=== PATIENT | female | born 1965 | race Caucasian/White ===

== ENCOUNTER 2022-02-05 20:05 | Emergency (ER) | payer MEDICARE, SELFPAY ==
[2022-02-05 20:08] VITALS: BP 104/67; PULSE 88; RESP 18; TEMP 37.4; O2SAT 97; BMI 26.9
--- NOTE | 2022-02-05 21:10 | EDS_ITS ---
HPI HPI - URI History of Present Illness Chief Complaint: Cough Narrative Narrative: 56-year-old female presenting with fever, chills, body aches, nausea/vomiting. She states she current lives at homeless skilled nursing. She states she was around her daughter and her children the other day who all tested positive for influenza A. She does not have any chest pain. She does complain of body aches and history of neuropathy. He states that her neuropathic pain medicine is not helping her right now. ROS ROS ED Constitutional Constitutional ED: Reports chills and fever(s) Eyes Eyes: Denies change in vision or diplopia ENT ENT ED: Denies rhinorrhea or sore throat Cardiovascular Cardiovascular: Denies chest pain or palpitations Respiratory/Chest Respiratory/Chest: Reports cough and dyspnea Gastrointestinal Gastrointestinal: Reports nausea and vomiting; Denies abdominal pain Genitourinary Genitourinary ED: Denies dysuria or hematuria Musculoskeletal Musculoskeletal: Reports myalgias Integumentary Denies abscess or Abrasions Neurologic Neurologic: Reports headache(s); Denies paresthesias or weakness Psychiatric Psychiatric: Denies anxiety or depression [facility] Medical History Back pain Carpal tunnel syndrome on both sides Cholecystectomy planned Pain management Home Medications Vitamin D3 02/05/22 [History Last Taken Unknown] albuterol sulfate 90 mcg/actuation aerosol inhaler 2 puff inhalation Q4H PRN Wheezing 02/05/22 [History Last Taken Unknown] amitriptyline 50 mg tablet 50 mg PO QHS 02/05/22 [History Last Taken Unknown] budesonide-formoterol HFA 80 mcg-4.5 mcg/actuation aerosol inhaler (Symbicort) 2 puff inhalation BID 02/05/22 [History Last Taken Unknown] bupropion HCl 75 mg tablet 37.5 mg PO QHS 02/05/22 [History Last Taken Unknown] buspirone 5 mg tablet 5 mg PO TID 02/05/22 [History Last Taken Unknown] cyclobenzaprine 10 mg tablet 10 mg PO TID PRN Spasms 02/05/22 [History Last Take n Unknown] duloxetine 60 mg capsule,delayed release 60 mg PO DAILY 02/05/22 [History Last Taken Unknown] fluticasone propionate 50 mcg/actuation nasal spray,suspension (Flonase Allergy Relief) 2 spray intranasal DAILY 02/05/22 [History Last Taken Unknown] insulin glargine 100 unit/mL (3 mL) subcutaneous pen (Lantus Solostar U-100 Insulin) 75 unit subcut QHS 02/05/22 [History Last Taken Unknown] meloxicam 15 mg tablet 15 mg PO DAILY 02/05/22 [History Last Taken Unknown] metformin 1,000 mg tablet 1,000 mg PO BID 02/05/22 [History Last Taken Unknown] montelukast 10 mg tablet (Singulair) 10 mg PO DAILY 02/05/22 [History Last Taken Unknown] oxycodone-acetaminophen 7.5 mg-325 mg tablet (Percocet) 1 tab PO Q6H PRN Pain 02/05/22 [History Last Taken Unknown] pioglitazone 15 mg tablet 15 mg PO DAILY 02/05/22 [History Last Taken Unknown] pravastatin 40 mg tablet 40 mg PO QHS 02/05/22 [History Last Taken Unknown] pregabalin 100 mg capsule 100 mg PO DAILY 02/05/22 [History Last Taken Unknown] topiramate 50 mg tablet 50 mg PO QHS 02/05/22 [History Last Taken Unknown] Allergy/AdvReac Type Severity Reaction Status Date / Time acetaminophen [From Vicodin] Allergy Other Verified 02/05/22 20:07 codeine Allergy Other Verified 02/05/22 20:07 hydrocodone [From Vicodin] Allergy Other Verified 02/05/22 20:07 oxycodone AdvReac Itching Verified 02/05/22 20:07 Surgical History History of hysterectomy Social History Smoking Status: Current every day smoker tobacco type: cigarettes EXAM Physical Exam Const Vital Signs: 02/05/22 20:08 02/05/22 20:14 Temperature 99.4 F H Temperature Source Temporal Pulse Rate 88 Respiratory Rate 18 Respiratory Effort Normal Non-Labored Respiratory Pattern Normal Blood Pressure 104/67 Blood Pressure Mean 79 Pulse Ox 97 Oxygen Delivery Method Room Air Positive well nourished General Appearance ED: NAD; Negative for pallor HEENT Reports moist mucous membranes normocephalic and atraumatic Eyes PERRL and EOMs intact bilaterally Resp normal respiratory effort and clear to auscultation bilaterally Auscultation: Negative for rales or rhonchi Cardio Rate: regular rate Rhythm: regular rhythm GI non-tender and non-distended Extremity normal to inspection Neuro oriented x3 and CN's II-XII intact bilaterally Sensorium / Orientation: alert Psych mental status grossly normal Skin General Skin Exam: Negative for jaundice or pallor MDM MDM MDM Narrative Medical decision making narrative: Appearing 56-year-old female with normal vital signs. She reports exposure to influenza and thinks that is what she has. She does not want to be tested. She does complain of body aches and nausea and vomiting. She is given IM Toradol and a dose of Zofran orally. Her lungs are clear to auscultation. I do not believe she needs a chest x-ray. On reevaluation patient feeling improved. She is given a p.o. challenge and able to tolerate fluids. She will be given a prescription for Zofran for home. She is to alternate Tylenol and ibuprofen. Patient stable for discharge at this time. Impression: 1. Viral syndrome 2. Nausea/vomiting Lab Data Attestation: I reviewed the patient's lab results. Discharge Plan Triage Chief Complaint: Cough Other Complaint: Fever Nausea/Vomiting ED Provider: Raphael Patel Dx/Rx/DC Orders Prescriptions: No Action cyclobenzaprine 10 mg Tablet 10 mg PO TID PRN (Reason: Spasms) pioglitazone 15 mg Tablet 15 mg PO DAILY buspirone 5 mg Tablet 5 mg PO TID pravastatin 40 mg Tablet 40 mg PO QHS meloxicam 15 mg Tablet 15 mg PO DAILY amitriptyline 50 mg Tablet 50 mg PO QHS metformin 1,000 mg Tablet 1,000 mg PO BID bupropion HCl [Wellbutrin] 75 mg Tablet 37.5 mg PO QHS montelukast [Singulair] 10 mg Tablet 10 mg PO DAILY oxycodone-acetaminophen [Percocet] 7.5-325 mg Tablet 1 tab PO Q6H PRN (Reason: Pain) albuterol sulfate 90 mcg/actuation Hfa Aerosol Inhaler 2 puff INHALATION Q4H PRN (Reason: Wheezing) fluticasone propionate [Flonase Allergy Relief] 50 mcg/actuation [place],Suspension 2 spray INTRANASAL DAILY Rx Instructions: administer into each nostril topiramate 50 mg Tablet 50 mg PO QHS duloxetine 60 mg Capsule,Delayed Release(Dr/Ec) 60 mg PO DAILY pregabalin 100 mg Capsule 100 mg PO DAILY budesonide-formoterol [Symbicort] 80-4.5 mcg/actuation Hfa Aerosol Inhaler 2 puff INHALATION BID insulin glargine [Lantus Solostar U-100 Insulin] 100 unit/mL (3 mL) Insulin Pen 75 unit SUBCUT QHS Vitamin D3 Primary Care Provider: Care Physician,No Primary Referrals: Care Physician,No Primary [Primary Care Provider] -
[2022-02-05] MEDS: Ketorolac 15 MG/ML Vial IM (21:29)
[2022-02-05] MEDS: Ondansetron ODT 4 MG Tablet PO (21:30)
[2022-02-05 22:46] VITALS: O2SAT 97
== END 2022-02-05 22:56 | disposition home or self-care (01) ==
PROVIDERS: Emergency Provider Student in an Organized Health Care Education/Training Program; Visit Provider Student in an Organized Health Care Education/Training Program
DX: B34.9 Viral infection, unspecified (principal); Z79.4 Long term (current) use of insulin; R11.2 Nausea with vomiting, unspecified; F17.210 Nicotine dependence, cigarettes, uncomplicated; Z79.899 Other long term (current) drug therapy
CPT/HCPCS: 96372; 96374; 99285; J2405

== ENCOUNTER 2022-02-16 20:22 | Emergency (ER) | payer MEDICARE, SELFPAY ==
[2022-02-16 20:24] VITALS: BP 109/80; PULSE 110; RESP 16; TEMP 37.7; O2SAT 95; BMI 27.3
--- NOTE | 2022-02-16 20:40 | RAD_ITS ---
INDICATION: cough, fever EXAMINATION/TECHNIQUE: X-RAY - XR Chest 2 Views COMPARISON: None. FINDINGS: LINES/DEVICES: None. LUNGS: Right midlung consolidation. The left lung appears clear. MEDIASTINUM AND CARDIOVASCULAR STRUCTURES: Cardiac silhouette not enlarged. Central airways and mediastinal contour are unremarkable. RAD/Chest PA and Lateral IMPRESSION: Right midlung consolidation. Electronically Signed: Alfonzo Heard MD at 20:54 EST ,
--- NOTE | 2022-02-16 21:16 | EX.ED.DYSGE1 ---
HPI History of Present Illness Chief Complaint: Fever Detail of Chief Complaint: Fever, cough, sore throat Informant: patient Narrative Narrative: Patient presents the emergency department complaint of feeling sick for about 2 weeks. Patient states that her grandkids were ill and other family members were ill that she was helping take care of. Patient complains of cough with dark sputum at times. She complains of sore throat and right ear pain. She complains of some exertional dyspnea. She denies chest pain. She denies recent travel or surgery. Patient has had the COVID-vaccine but not any other boosters. [facility] Medical History Back pain Carpal tunnel syndrome on both sides Cholecystectomy planned Pain management Home Medications Vitamin D3 02/05/22 [History Last Taken Unknown] acetaminophen 650 mg tablet,extended release (Tylenol 8 Hour) 650 mg PO Q8H PRN fever or pain #14 tabs 02/05/22 [Rx Last Taken Unknown] albuterol sulfate 90 mcg/actuation aerosol inhaler 2 puff inhalation Q4H PRN Wheezing 02/05/22 [History Last Taken Unknown] amitriptyline 50 mg tablet 50 mg PO QHS 02/05/22 [History Last Taken Unknown] budesonide-formoterol HFA 80 mcg-4.5 mcg/actuation aerosol inhaler (Symbicort) 2 puff inhalation BID 02/05/22 [History Last Taken Unknown] bupropion HCl 75 mg tablet 37.5 mg PO QHS 02/05/22 [History Last Taken Unknown] buspirone 5 mg tablet 5 mg PO TID 02/05/22 [History Last Taken Unknown] cyclobenzaprine 10 mg tablet 10 mg PO TID PRN Spasms 02/05/22 [History Last Taken Unknown] duloxetine 60 mg capsule,delayed release 60 mg PO DAILY 02/05/22 [History Last Taken Unknown] fluticasone propionate 50 mcg/actuation nasal spray,suspension (Flonase Allergy Relief) 2 spray intranasal DAILY 02/05/22 [History Last Taken Unknown] ibuprofen 600 mg tablet 600 mg PO Q6H PRN PRN fever or pain #20 tabs 02/05/22 [Rx Last Taken Unknown] insulin glargine 100 unit/mL (3 mL) subcutaneous pen (Lantus Solostar U-100 Insulin) 75 unit subcut QHS 02/05/22 [History Last Taken Unknown] meloxicam 15 mg tablet 15 mg PO DAILY 02/05/22 [History Last Taken Unknown] metformin 1,000 mg tablet 1,000 mg PO BID 02/05/22 [History Last Taken Unknown] montelukast 10 mg tablet (Singulair) 10 mg PO DAILY 02/05/22 [History Last Taken Unknown] ondansetron 4 mg disintegrating tablet 4 mg PO Q8H PRN nausea and vomiting #14 tabs 02/05/22 [Rx Last Taken Unknown] oxycodone-acetaminophen 7.5 mg-325 mg tablet (Percocet) 1 tab PO Q6H PRN Pain 02/05/22 [History Last Taken Unknown] pioglitazone 15 mg tablet 15 mg PO DAILY 02/05/22 [History Last Taken Unknown] pravastatin 40 mg tablet 40 mg PO QHS 02/05/22 [History Last Taken Unknown] pregabalin 100 mg capsule 100 mg PO DAILY 02/05/22 [History Last Taken Unknown] topiramate 50 mg tablet 50 mg PO QHS 02/05/22 [History Last Taken Unknown] benzonatate 200 mg capsule 200 mg PO TID PRN cough #20 caps 02/16/22 [Rx Last Taken Unknown] levofloxacin 750 mg tablet 750 mg PO DAILY #7 tabs 02/16/22 [Rx Last Taken Unknown] Allergy/AdvReac Type Severity Reaction Status Date / Time codeine Allergy Other Verified 02/16/22 20:27 hydrocodone [From Vicodin] Allergy Other Verified 02/16/22 20:27 oxycodone AdvReac Itching Verified 02/16/22 20:27 Surgical History History of hysterectomy Social History Smoking Status: Current every day smoker tobacco type: cigarettes ROS ROS ED Review of Systems ROS Unobtainable: other Constitutional Constitutional ED: Reports fever(s) and lethargy; Denies chills, sweats or weight loss Eyes Eyes: Denies blurry vision, change in vision or diplopia ENT ENT ED: Reports sore throat; Denies rhinorrhea Cardiovascular Cardiovascular: Denies chest pain, orthopnea or racing heartbeat Respiratory/Chest Respiratory/Chest: Reports cough, dyspnea and dyspnea on exertion; Denies orthopnea or sputum Gastrointestinal Gastrointestinal: Denies abdominal pain, diarrhea, nausea or vomiting Genitourinary Genitourinary ED: Denies dysuria, hematuria or urinary frequency Musculoskeletal Musculoskeletal: Denies arthralgias, back pain, myalgias or neck pain Integumentary Denies abscess, Abrasions or rash Neurologic Neurologic: Denies headache(s) or weakness Psychiatric Psychiatric: Denies anxiety, depression or suicidal thoughts Endocrine Endocrinology: Denies polydipsia, polyphagia or polyuria Hematologic/Lymphatic Hematologic/Lymphatic: Denies easy bleeding, easy bruising or lymphadenopathy Allergic/Immunologic Allergic/Immunologic ED: Denies mouth swelling, tongue swelling or urticaria EXAM Physical Exam Const Vital Signs: 02/16/22 20:24 02/16/22 22:02 02/16/22 22:02 Temperature 99.9 F H 99.2 F H Temperature Source Temporal Oral Pulse Rate 110 H 95 95 Respiratory Rate 16 16 16 Respiratory Effort Respiratory Pattern Blood Pressure 109/80 95/64 95/64 Blood Pressure Mean 89 74 74 Pulse Ox 95 98 98 Oxygen Delivery Method Room Air Room Air Room Air 02/16/22 22:02 02/16/22 22:02 02/16/22 22:05 Temperature Temperature Source Pulse Rate Respiratory Rate 16 Respiratory Effort Normal Non-Labored Respiratory Pattern Normal Blood Pressure Blood Pressure Mean Pulse Ox 98 Oxygen Delivery Method Room Air Room Air Positive well nourished and well developed General Appearance ED: well developed and NAD HEENT Reports TM's clear and moist mucous membranes normocephalic and atraumatic; Negative for trauma or tenderness Tympanic Membrane ED: Yes TM's clear Eyes PERRL and EOMs intact bilaterally General Eye ED: Negative for pale conjunctiva or scleral icterus Neck no lymphadenopathy, supple and no JVD General: Negative for tenderness Chest Wall inspection of chest normal and palpation of chest normal Chest: Negative for tenderness Resp normal respiratory effort and clear to auscultation bilaterally Effort and Inspection: Negative for respiratory distress or pain with movement Auscultation: Negative for rhonchi, wheezes or diminished lung sounds Cardio regular rate, regular rhythm, S1 normal heart sound, S2 normal heart sound and no murmurs Peripheral Pulses: pulses 2+ throughout GI normal to inspection, nondistended, normoactive bowel sounds, soft to palpation, non-tender, non-distended and no masses Back/Spine no CVA tenderness and no thoracic nor lumbar tenderness Extremity normal to inspection General Extremety ED: Negative for edema General Extremity: Negative for edema Neuro oriented x3, CN's II-XII intact bilaterally, no sensory deficits noted and gait normal Sensorium / Orientation: awake, alert, oriented to person, oriented to place and oriented to time Motor Exam: strength 5/5 throughout and strength abnormal Psych mental status grossly normal Skin no rashes or lesions noted and no wounds MDM MDM MDM Narrative Medical decision making narrative: IV line established on arrival. Patient had a CBC with differential that showed an elevated white count of 19.6. Chemistries were unremarkable. Lactate was normal at 1.4. Chest x-ray obtained showed a right lower lobe infiltrate. Patient was started on IV Levaquin 750 mg IV. While in the department and her blood pressure dropped from 109/80-90 5/64 she was ordered a liter normal saline fluid bolus. Care of patient turned over to evening physician awaiting fluid bolus and repeat evaluation. Clinically she looks well. I feel she can be treated as an outpatient as she is not tachypneic or hypoxic. If her hypotension persist she may require admission. Lab Data Attestation: I reviewed the patient's lab results. Labs: Laboratory Results - last 24 hr 02/16/22 02/16/22 02/16/22 21:05 21:05 21:53 WBC Cancelled Corrected WBC Cancelled RBC Cancelled Hgb Cancelled Hct Cancelled MCV Cancelled MCH Cancelled MCHC Cancelled RDW Std Deviation Cancelled RDW Coeff of Elise Cancelled Plt Count Cancelled MPV Cancelled Immature Gran % (Auto) Cancelled Neut % (Auto) Cancelled Lymph % (Auto) Cancelled [place] % (Auto) Cancelled Eos % (Auto) Cancelled Baso % (Auto) Cancelled Absolute Neuts (auto) Cancelled Absolute Lymphs (auto) Cancelled Total Counted Cancelled Neutrophils % (Manual) Cancelled Band Neutrophils % Cancelled Lymphocytes % (Manual) Cancelled Monocytes % (Manual) Cancelled Eosinophils % (Manual) Cancelled Basophils % (Manual) Cancelled Metamyelocytes % Cancelled Myelocytes % Cancelled Promyelocytes % Cancelled Blast Cells % Cancelled Plasma Cell % (Manual) Cancelled Other Cells % Cancelled Nucleated RBC % Cancelled Nucleated RBCs/100 WBC Cancelled Differential Comment Cancelled Diff Path Review Cancelled Hypersegmented Neuts Cancelled Atypical Lymphocytes Cancelled Reactive Lymphocytes Cancelled Smudge Cells Cancelled Toxic Granulation Cancelled Toxic Vacuolation Cancelled Dohle Bodies Cancelled [place] Rods Cancelled Platelet Estimate Cancelled Plt Morphology Comment Cancelled RBC Morphology Cancelled Polychromasia Cancelled Hypochromasia Cancelled Poikilocytosis Cancelled Basophilic [place]ippling Cancelled Anisocytosis Cancelled Microcytosis Cancelled Macrocytosis Cancelled Spherocytes Cancelled Sickle Cells Cancelled Target Cells Cancelled Tear Drop Cells Cancelled Ovalocytes Cancelled Stomatocytes Cancelled [place] Bodies Cancelled Devin Cells Cancelled Bite Cells Cancelled Crenated Cell Cancelled Acanthocytes (Spur) Cancelled Rouleaux Cancelled Schistocytes Cancelled Sodium 131 L Potassium 3.9 Chloride 100 Carbon Dioxide 20.0 L Anion Gap 11 BUN 9 Creatinine 0.71 Estim Creat Clear Calc 66.76 Est GFR (MDRD) Af Amer 110 Est GFR (MDRD) Non-Af 91 BUN/Creatinine Ratio 12.7 Glucose 158 H Lactic Acid 1.4 Calcium 10.0 02/16/22 21:53 WBC 19.6 H Corrected WBC RBC 4.48 Hgb 13.8 Hct 41.5 MCV 92.6 MCH 30.8 MCHC 33.3 RDW Std Deviation 43.2 RDW Coeff of Elise 12.6 Plt Count 356 MPV 9.2 Immature Gran % (Auto) 0.700 Neut % (Auto) 86.6 H Lymph % (Auto) 7.2 L [place] % (Auto) 5.1 Eos % (Auto) 0.1 Baso % (Auto) 0.3 Absolute Neuts (auto) 17.0 H Absolute Lymphs (auto) 1.41 Total Counted Neutrophils % (Manual) Band Neutrophils % Lymphocytes % (Manual) Monocytes % (Manual) Eosinophils % (Manual) Basophils % (Manual) Metamyelocytes % Myelocytes % Promyelocytes % Blast Cells % Plasma Cell % (Manual) Other Cells % Nucleated RBC % 0 Nucleated RBCs/100 WBC Differential Comment Diff Path Review Hypersegmented Neuts Atypical Lymphocytes Reactive Lymphocytes Smudge Cells Toxic Granulation Toxic Vacuolation Dohle Bodies Edith Rods Platelet Estimate Plt Morphology Comment RBC Morphology Polychromasia Hypochromasia Poikilocytosis Basophilic Stippling Anisocytosis Microcytosis Macrocytosis Spherocytes Sickle Cells Target Cells Tear Drop Cells Ovalocytes Stomatocytes [place] Bodies [place] Cells Bite Cells Crenated Cell Acanthocytes (Spur) Rouleaux Schistocytes Sodium Potassium Chloride Carbon Dioxide Anion Gap BUN Creatinine Estim Creat Clear Calc Est GFR (MDRD) Af Amer Est GFR (MDRD) Non-Af BUN/Creatinine Ratio Glucose Lactic Acid Calcium Radiography Chest X-Ray - ED: 1 View Diagnostic Testing: Clinical Impression(s) from Imaging Studies Chest X-Ray 02/16/22 20:40 IMPRESSION: Right midlung consolidation. Electronically Signed: Alfonzo Heard MD at 20:54 EST , 1 view chest x-ray obtained interpreted by myself as right lower lobe infiltrate. Radiology agreed and noted right midlung consolidation. Discharge Plan Triage Chief Complaint: Fever ED Provider: Mackenzie Lagos Dx/Rx/DC Orders Clinical Impression: Pneumonia, Leukocytosis Instructions: ED Pneumonia (Adult) Prescriptions: New levofloxacin 750 mg tablet 750 mg PO DAILY Qty: 7 0RF benzonatate 200 mg capsule 200 mg PO TID PRN (Reason: cough) Qty: 20 0RF No Action cyclobenzaprine 10 mg Tablet 10 mg PO TID PRN (Reason: Spasms) pioglitazone 15 mg Tablet 15 mg PO DAILY buspirone 5 mg Tablet 5 mg PO TID pravastatin 40 mg Tablet 40 mg PO QHS meloxicam 15 mg Tablet 15 mg PO DAILY amitriptyline 50 mg Tablet 50 mg PO QHS metformin 1,000 mg Tablet 1,000 mg PO BID bupropion HCl [Wellbutrin] 75 mg Tablet 37.5 mg PO QHS montelukast [Singulair] 10 mg Tablet 10 mg PO DAILY oxycodone-acetaminophen [Percocet] 7.5-325 mg Tablet 1 tab PO Q6H PRN (Reason: Pain) albuterol sulfate 90 mcg/actuation Hfa Aerosol Inhaler 2 puff INHALATION Q4H PRN (Reason: Wheezing) fluticasone propionate [Flonase Allergy Relief] 50 mcg/actuation [place],Suspension 2 spray INTRANASAL DAILY Rx Instructions: administer into each nostril topiramate 50 mg Tablet 50 mg PO QHS duloxetine 60 mg Capsule,Delayed Release(Dr/Ec) 60 mg PO DAILY pregabalin 100 mg Capsule 100 mg PO DAILY budesonide-formoterol [Symbicort] 80-4.5 mcg/actuation Hfa Aerosol Inhaler 2 puff INHALATION BID insulin glargine [Lantus Solostar U-100 Insulin] 100 unit/mL (3 mL) Insulin Pen 75 unit SUBCUT QHS Vitamin D3 ondansetron 4 mg tablet,disintegrating 4 mg PO Q8H PRN (Reason: nausea and vomiting) Qty: 14 0RF ibuprofen 600 mg tablet 600 mg PO Q6H PRN PRN (Reason: fever or pain) Qty: 20 0RF acetaminophen [Tylenol 8 Hour] 650 mg tablet extended release 650 mg PO Q8H PRN (Reason: fever or pain) Qty: 14 0RF Primary Care Provider: Care Physician,No Primary Referrals: Care Physician,No Primary [Primary Care Provider] -
[2022-02-16 21:28] LABS: Anion Gap 11 (5-15); BUN 9 mg/dL (7-18); BUN/Creat Ratio 12.7 RATIO (10-20); Chloride 100 mmol/L (98-107); Creatinine, Serum 0.71 mg/dL (0.55-1.02); EST Glomerular Filtration Rate 91 mL/min (>60); Est Glom Filt Rate - Afr Amer 110 mL/min (>60); Estimated Creatinine Clearance 66.76 ml/min; Glucose 158 mg/dL (74-106); Potassium 3.9 mmol/L (3.5-5.1); Sodium Level 131 mmol/L (136-145)
[2022-02-16] MEDS: 0.9% Normal Saline 1,000 ML 50 ML IV (21:52)
[2022-02-16] MEDS: levoFLOXacin IV 750 MG/150 ML BAG 100 MG IV (21:57)
[2022-02-16 22:01] LABS: Absolute Lymphocyte Count 1.41 X10^3/uL (0.83-4.51); Basophil# 0.05 X10^3/uL; Basophil% 0.3 % (0-1); Eosinophil# 0.01 X10^3/uL; Eosinophils% 0.1 % (0-5); Hematocrit 41.5 % (37-47); Hemoglobin 13.8 g/dL (12.0-15.0); Lymphocyte # 1.41 X10^3/ul (0.83-4.51); Lymphocyte % 7.2 % (19-41); Mean Corp Hgb Conc 33.3 g/dL (32-36); Mean Corpuscular Hgb 30.8 pg (27.0-32.0); Mean Corpuscular Volume 92.6 fL (81-99); Mean Platelet Vol. 9.2 fl (6.2-12.0); Monocyte% 5.1 % (0-10); NRBC Flagged by Analyzer 0 % (0-5); Neutrophil # 16.97 X10^3/uL (2.7-7.7); Neutrophil % 86.6 % (47-70); Platelet Count 356 K/mm3 (150-450); RBC Distribution Width CV 12.6 % (11.6-14.6); RBC Distribution Width SD 43.2 fl (35.1-43.9); Red Blood Count 4.48 M/mm3 (4.2-5.4); White Blood Count 19.6 K/mm3 (4.4-11.0)
[2022-02-16 22:02] VITALS: BP 95/64; PULSE 95; RESP 16; TEMP 37.3; O2SAT 98
[2022-02-16] MEDS: 0.9% Normal Saline 1,000 ML 999 ML IV ×2 (22:20→23:39)
[2022-02-16 22:28] LABS: Lactic Acid 1.4 mmol/L (0.4-1.9)
[2022-02-16 23:40] VITALS: BP 97/59; PULSE 97; RESP 16; TEMP 37.7; O2SAT 96
[2022-02-16 23:42] VITALS: BP 107/76; BP 108/68; BP 124/80; PULSE 100; PULSE 106; PULSE 95
[2022-02-16] MEDS: Acetaminophen 500 MG Tablet 1000 MG PO (23:51)
[2022-02-17 01:00] VITALS: BP 124/76; PULSE 97; RESP 18; TEMP 36.8; O2SAT 96
--- NOTE | 2022-02-17 01:03 | EX.ED.DYSGE1 ---
HPI History of Present Illness Chief Complaint: Fever PFSH PFS Medical History Back pain Carpal tunnel syndrome on both sides Cholecystectomy planned Pain management Home Medications Vitamin D3 02/05/22 [History Last Taken Unknown] acetaminophen 650 mg tablet,extended release (Tylenol 8 Hour) 650 mg PO Q8H PRN fever or pain #14 tabs 02/05/22 [Rx Last Taken Unknown] albuterol sulfate 90 mcg/actuation aerosol inhaler 2 puff inhalation Q4H PRN Wheezing 02/05/22 [History Last Taken Unknown] amitriptyline 50 mg tablet 50 mg PO QHS 02/05/22 [History Last Taken Unknown] budesonide-formoterol HFA 80 mcg-4.5 mcg/actuation aerosol inhaler (Symbicort) 2 puff inhalation BID 02/05/22 [History Last Taken Unknown] bupropion HCl 75 mg tablet 37.5 mg PO QHS 02/05/22 [History Last Taken Unknown] buspirone 5 mg tablet 5 mg PO TID 02/05/22 [History Last Taken Unknown] cyclobenzaprine 10 mg tablet 10 mg PO TID PRN Spasms 02/05/22 [History Last Taken Unknown] duloxetine 60 mg capsule,delayed release 60 mg PO DAILY 02/05/22 [History Last Taken Unknown] fluticasone propionate 50 mcg/actuation nasal spray,suspension (Flonase Allergy Relief) 2 spray intranasal DAILY 02/05/22 [History Last Taken Unknown] ibuprofen 600 mg tablet 600 mg PO Q6H PRN PRN fever or pain #20 tabs 02/05/22 [Rx Last Taken Unknown] insulin glargine 100 unit/mL (3 mL) subcutaneous pen (Lantus Solostar U-100 Insulin) 75 unit subcut QHS 02/05/22 [History Last Taken Unknown] meloxicam 15 mg tablet 15 mg PO DAILY 02/05/22 [History Last Taken Unknown] metformin 1,000 mg tablet 1,000 mg PO BID 02/05/22 [History Last Taken Unknown] montelukast 10 mg tablet (Singulair) 10 mg PO DAILY 02/05/22 [History Last Taken Unknown] ondansetron 4 mg disintegrating tablet 4 mg PO Q8H PRN nausea and vomiting #14 tabs 02/05/22 [Rx Last Taken Unknown] oxycodone-acetaminophen 7.5 mg-325 mg tablet (Percocet) 1 tab PO Q6H PRN Pain 02/05/22 [History Last Taken Unknown] pioglitazone 15 mg tablet 15 mg PO DAILY 02/05/22 [History Last Taken Unknown] pravastatin 40 mg tablet 40 mg PO QHS 02/05/22 [History Last Taken Unknown] pregabalin 100 mg capsule 100 mg PO DAILY 02/05/22 [History Last Taken Unknown] topiramate 50 mg tablet 50 mg PO QHS 02/05/22 [History Last Taken Unknown] benzonatate 200 mg capsule 200 mg PO TID PRN cough #20 caps 02/16/22 [Rx Last Taken Unknown] levofloxacin 750 mg tablet 750 mg PO DAILY #7 tabs 02/16/22 [Rx Last Taken Unknown] Allergy/AdvReac Type Severity Reaction Status Date / Time codeine Allergy Other Verified 02/16/22 20:27 hydrocodone [From Vicodin] Allergy Other Verified 02/16/22 20:27 oxycodone AdvReac Itching Verified 02/16/22 20:27 Surgical History History of hysterectomy Social History Smoking Status: Current every day smoker tobacco type: cigarettes EXAM Physical Exam Const Vital Signs: 02/16/22 20:24 02/16/22 22:02 02/16/22 22:02 Temperature 99.9 F H 99.2 F H Temperature Source Temporal Oral Pulse Rate 110 H 95 95 Pulse Rate [Lying] Pulse Rate [Sitting (for 1 minute prior to obtaining)] Pulse Rate [Standing (for 1 minute prior to obtaining)] Respiratory Rate 16 16 16 Respiratory Effort Respiratory Pattern Blood Pressure 109/80 95/64 95/64 Blood Pressure [Lying] Blood Pressure [Sitting (for 1 minute prior to obtaining)] Blood Pressure [Standing (for 1 minute prior to obtaining)] Blood Pressure Mean 89 74 74 Blood Pressure Mean [Lying] Blood Pressure Mean [Sitting (for 1 minute prior to obtaining)] Blood Pressure Mean [Standing (for 1 minute prior to obtaining)] Pulse Ox 95 98 98 Oxygen Delivery Method Room Air Room Air Room Air 02/16/22 22:02 02/16/22 22:02 02/16/22 22:05 Temperature Temperature Source Pulse Rate Pulse Rate [Lying] Pulse Rate [Sitting (for 1 minute prior to obtaining)] Pulse Rate [Standing (for 1 minute prior to obtaining)] Respiratory Rate 16 Respiratory Effort Normal Non-Labored Respiratory Pattern Normal Blood Pressure Blood Pressure [Lying] Blood Pressure [Sitting (for 1 minute prior to obtaining)] Blood Pressure [Standing (for 1 minute prior to obtaining)] Blood Pressure Mean Blood Pressure Mean [Lying] Blood Pressure Mean [Sitting (for 1 minute prior to obtaining)] Blood Pressure Mean [Standing (for 1 minute prior to obtaining)] Pulse Ox 98 Oxygen Delivery Method Room Air Room Air 02/16/22 23:40 02/16/22 23:42 02/17/22 01:00 Temperature 100 F H 98.3 F Temperature Source Oral Oral Pulse Rate 97 97 Pulse Rate [Lying] 95 Pulse Rate [Sitting (for 1 minute prior to obtaining)] 100 Pulse Rate [Standing (for 1 minute prior to obtaining)] 106 H Respiratory Rate 16 18 Respiratory Effort Respiratory Pattern Blood Pressure 97/59 L 124/76 H Blood Pressure [Lying] 108/68 Blood Pressure [Sitting (for 1 minute prior to obtaining)] 124/80 H Blood Pressure [Standing (for 1 minute prior to obtaining)] 107/76 Blood Pressure Mean 71 92 Blood Pressure Mean [Lying] 81 Blood Pressure Mean [Sitting (for 1 minute prior to obtaining)] 94 Blood Pressure Mean [Standing (for 1 minute prior to obtaining)] 86 Pulse Ox 96 96 Oxygen Delivery Method Room Air Room Air [facility] Lab Data Labs: Laboratory Results - last 24 hr 02/16/22 02/16/22 02/16/22 21:05 21:05 21:53 WBC Cancelled Corrected WBC Cancelled RBC Cancelled Hgb Cancelled Hct Cancelled MCV Cancelled MCH Cancelled MCHC Cancelled RDW Std Deviation Cancelled RDW Coeff of Elise Cancelled Plt Count Cancelled MPV Cancelled Immature Gran % (Auto) Cancelled Neut % (Auto) Cancelled Lymph % (Auto) Cancelled [place] % (Auto) Cancelled Eos % (Auto) Cancelled Baso % (Auto) Cancelled Absolute Neuts (auto) Cancelled Absolute Lymphs (auto) Cancelled Total Counted Cancelled Neutrophils % (Manual) Cancelled Band Neutrophils % Cancelled Lymphocytes % (Manual) Cancelled Monocytes % (Manual) Cancelled Eosinophils % (Manual) Cancelled Basophils % (Manual) Cancelled Metamyelocytes % Cancelled Myelocytes % Cancelled Promyelocytes % Cancelled Blast Cells % Cancelled Plasma Cell % (Manual) Cancelled Other Cells % Cancelled Nucleated RBC % Cancelled Nucleated RBCs/100 WBC Cancelled Differential Comment Cancelled Diff Path Review Cancelled Hypersegmented Neuts Cancelled Atypical Lymphocytes Cancelled Reactive Lymphocytes Cancelled Smudge Cells Cancelled Toxic Granulation Cancelled Toxic Vacuolation Cancelled Dohle Bodies Cancelled Edith Rods Cancelled Platelet Estimate Cancelled Plt Morphology Comment Cancelled RBC Morphology Cancelled Polychromasia Cancelled Hypochromasia Cancelled Poikilocytosis Cancelled Basophilic Stippling Cancelled Anisocytosis Cancelled Microcytosis Cancelled Macrocytosis Cancelled Spherocytes Cancelled Sickle Cells Cancelled Target Cells Cancelled Tear Drop Cells Cancelled Ovalocytes Cancelled Stomatocytes Cancelled [place] Bodies Cancelled Rochelle Cells Cancelled Bite Cells Cancelled Crenated Cell Cancelled Acanthocytes (Spur) Cancelled Rouleaux Cancelled Schistocytes Cancelled Sodium 131 L Potassium 3.9 Chloride 100 Carbon Dioxide 20.0 L Anion Gap 11 BUN 9 Creatinine 0.71 Estim Creat Clear Calc 66.76 Est GFR (MDRD) Af Amer 110 Est GFR (MDRD) Non-Af 91 BUN/Creatinine Ratio 12.7 Glucose 158 H Lactic Acid 1.4 Calcium 10.0 02/16/22 21:53 WBC 19.6 H Corrected WBC RBC 4.48 Hgb 13.8 Hct 41.5 MCV 92.6 MCH 30.8 MCHC 33.3 RDW Std Deviation 43.2 RDW Coeff of Elise 12.6 Plt Count 356 MPV 9.2 Immature Gran % (Auto) 0.700 Neut % (Auto) 86.6 H Lymph % (Auto) 7.2 L [place] % (Auto) 5.1 Eos % (Auto) 0.1 Baso % (Auto) 0.3 Absolute Neuts (auto) 17.0 H Absolute Lymphs (auto) 1.41 Total Counted Neutrophils % (Manual) Band Neutrophils % Lymphocytes % (Manual) Monocytes % (Manual) Eosinophils % (Manual) Basophils % (Manual) Metamyelocytes % Myelocytes % Promyelocytes % Blast Cells % Plasma Cell % (Manual) Other Cells % Nucleated RBC % 0 Nucleated RBCs/100 WBC Differential Comment Diff Path Review Hypersegmented Neuts Atypical Lymphocytes Reactive Lymphocytes Smudge Cells Toxic Granulation Toxic Vacuolation Dohle Bodies Edith Rods Platelet Estimate Plt Morphology Comment RBC Morphology Polychromasia Hypochromasia Poikilocytosis Basophilic Stippling Anisocytosis Microcytosis Macrocytosis Spherocytes Sickle Cells Target Cells Tear Drop Cells Ovalocytes Stomatocytes [place] Bodies Rochelle Cells Bite Cells Crenated Cell Acanthocytes (Spur) Rouleaux Schistocytes Sodium Potassium Chloride Carbon Dioxide Anion Gap BUN Creatinine Estim Creat Clear Calc Est GFR (MDRD) Af Amer Est GFR (MDRD) Non-Af BUN/Creatinine Ratio Glucose Lactic Acid Calcium Radiography Diagnostic Testing: Clinical Impression(s) from Imaging Studies Chest X-Ray 02/16/22 20:40 IMPRESSION: Right midlung consolidation. Electronically Signed: Alfonzo Heard MD at 20:54 EST , Treatment and Re-Evaluation Narrative: Patient signed out to me pending repeat blood pressure after IV fluids. After 2 L of IV fluid blood pressure is stable. Orthostatic vital signs are unremarkable. Patient is able to get up and ambulate and does not desaturate. She has received a dose of IV Levaquin and prescription for 7 additional days has been written by Dr. Lagos. Patient will be discharged per his instructions. Discharge Plan Triage Chief Complaint: Fever ED Provider: Mackenzie Lagos Dx/Rx/DC Orders Clinical Impression: Pneumonia, Leukocytosis Instructions: ED Pneumonia (Adult) Prescriptions: New levofloxacin 750 mg tablet 750 mg PO DAILY Qty: 7 0RF benzonatate 200 mg capsule 200 mg PO TID PRN (Reason: cough) Qty: 20 0RF No Action cyclobenzaprine 10 mg Tablet 10 mg PO TID PRN (Reason: Spasms) pioglitazone 15 mg Tablet 15 mg PO DAILY buspirone 5 mg Tablet 5 mg PO TID pravastatin 40 mg Tablet 40 mg PO QHS meloxicam 15 mg Tablet 15 mg PO DAILY amitriptyline 50 mg Tablet 50 mg PO QHS metformin 1,000 mg Tablet 1,000 mg PO BID bupropion HCl [Wellbutrin] 75 mg Tablet 37.5 mg PO QHS montelukast [Singulair] 10 mg Tablet 10 mg PO DAILY oxycodone-acetaminophen [Percocet] 7.5-325 mg Tablet 1 tab PO Q6H PRN (Reason: Pain) albuterol sulfate 90 mcg/actuation Hfa Aerosol Inhaler 2 puff INHALATION Q4H PRN (Reason: Wheezing) fluticasone propionate [Flonase Allergy Relief] 50 mcg/actuation [place],Suspension 2 spray INTRANASAL DAILY Rx Instructions: administer into each nostril topiramate 50 mg Tablet 50 mg PO QHS duloxetine 60 mg Capsule,Delayed Release(Dr/Ec) 60 mg PO DAILY pregabalin 100 mg Capsule 100 mg PO DAILY budesonide-formoterol [Symbicort] 80-4.5 mcg/actuation Hfa Aerosol Inhaler 2 puff INHALATION BID insulin glargine [Lantus Solostar U-100 Insulin] 100 unit/mL (3 mL) Insulin Pen 75 unit SUBCUT QHS Vitamin D3 ondansetron 4 mg tablet,disintegrating 4 mg PO Q8H PRN (Reason: nausea and vomiting) Qty: 14 0RF ibuprofen 600 mg tablet 600 mg PO Q6H PRN PRN (Reason: fever or pain) Qty: 20 0RF acetaminophen [Tylenol 8 Hour] 650 mg tablet extended release 650 mg PO Q8H PRN (Reason: fever or pain) Qty: 14 0RF Primary Care Provider: Care Physician,No Primary Referrals: Care Physician,No Primary [Primary Care Provider] -
[2022-02-17 07:15] VITALS: BP 120/74; PULSE 88; RESP 18; O2SAT 96
== END 2022-02-17 07:17 | disposition home or self-care (01) ==
LOC: ED 21:29
PROVIDERS: Emergency Provider Emergency Medicine; Visit Provider Emergency Medicine
DX: J18.9 Pneumonia, unspecified organism (principal); D72.829 Elevated white blood cell count, unspecified; F17.210 Nicotine dependence, cigarettes, uncomplicated
CPT/HCPCS: 71046; 80048; 83605; 85025; 87040; 87428; 94760; 99285; J7030; A4216

== ENCOUNTER 2022-02-17 20:28 | Emergency (ER) | payer MEDICARE, SELFPAY ==
[2022-02-17 20:30] VITALS: BP 90/60; PULSE 98; RESP 16; TEMP 37; O2SAT 98; BMI 27.3
[2022-02-17 22:03] VITALS: BP 97/76; PULSE 87; RESP 18; TEMP 36.9; O2SAT 96
[2022-02-17] MEDS: 0.9% Normal Saline 1,000 ML 999 ML IV (22:30)
--- NOTE | 2022-02-17 22:31 | ED.VIS.DYS ---
HPI History of Present Illness Chief Complaint: Shortness of Breath Narrative Narrative: 56-year-old female currently staying at the [facility], smoker, presents with increasing shortness of breath. She states that she has been sick for the last 2 weeks. She had a cough with intermittent fever and increasing shortness of breath. Of note, she states that she was diagnosed with pneumonia last night when she was seen in the emergency department. She was swabbed for COVID, influenza, and RSV reportedly and are negative. She was unable to supervisor opening and picking her antibiotics. She presents because of the continued shortness of breath. [facility] Medical History Back pain Carpal tunnel syndrome on both sides Cholecystectomy planned Pain management Pneumonia Home Medications Vitamin D3 02/05/22 [History Last Taken Unknown] acetaminophen 650 mg tablet,extended release (Tylenol 8 Hour) 650 mg PO Q8H PRN fever or pain #14 tabs 02/05/22 [Rx Last Taken Unknown] albuterol sulfate 90 mcg/actuation aerosol inhaler 2 puff inhalation Q4H PRN Wheezing 02/05/22 [History Last Taken Unknown] amitriptyline 50 mg tablet 50 mg PO QHS 02/05/22 [History Last Taken Unknown] budesonide-formoterol HFA 80 mcg-4.5 mcg/actuation aerosol inhaler (Symbicort) 2 puff inhalation BID 02/05/22 [History Last Taken Unknown] bupropion HCl 75 mg tablet 37.5 mg PO QHS 02/05/22 [History Last Taken Unknown] buspirone 5 mg tablet 5 mg PO TID 02/05/22 [History Last Taken Unknown] cyclobenzaprine 10 mg tablet 10 mg PO TID PRN Spasms 02/05/22 [History Last Taken Unknown] duloxetine 60 mg capsule,delayed release 60 mg PO DAILY 02/05/22 [History Last Taken Unknown] fluticasone propionate 50 mcg/actuation nasal spray,suspension (Flonase Allergy Relief) 2 spray intranasal DAILY 02/05/22 [History Last Taken Unknown] ibuprofen 600 mg tablet 600 mg PO Q6H PRN PRN fever or pain #20 tabs 02/05/22 [Rx Last Taken Unknown] insulin glargine 100 unit/mL (3 mL) subcutaneous pen (Lantus Solostar U-100 Insulin) 83 unit subcut QHS 02/05/22 [History Last Taken Unknown] meloxicam 15 mg tablet 15 mg PO DAILY 02/05/22 [History Last Taken Unknown] metformin 1,000 mg tablet 1,000 mg PO BID 02/05/22 [History Last Taken Unknown] montelukast 10 mg tablet (Singulair) 10 mg PO DAILY 02/05/22 [History Last Taken Unknown] ondansetron 4 mg disintegrating tablet 4 mg PO Q8H PRN nausea and vomiting #14 tabs 02/05/22 [Rx Last Taken Unknown] oxycodone-acetaminophen 7.5 mg-325 mg tablet (Percocet) 1 tab PO Q6H PRN Pain 02/05/22 [History Last Taken Unknown] pioglitazone 15 mg tablet 15 mg PO DAILY 02/05/22 [History Last Taken Unknown] pravastatin 40 mg tablet 40 mg PO QHS 02/05/22 [History Last Taken Unknown] pregabalin 100 mg capsule 100 mg PO DAILY 02/05/22 [History Last Taken Unknown] topiramate 50 mg tablet 50 mg PO QHS 02/05/22 [History Last Taken Unknown] benzonatate 200 mg capsule 200 mg PO TID PRN cough #20 caps 02/16/22 [Rx Last Taken Unknown] levofloxacin 750 mg tablet 750 mg PO DAILY #7 tabs 02/16/22 [Rx Last Taken Unknown] Allergy/AdvReac Type Severity Reaction Status Date / Time codeine Allergy Other Verified 02/17/22 20:32 hydrocodone [From Vicodin] Allergy Other Verified 02/17/22 20:32 oxycodone AdvReac Itching Verified 02/17/22 20:32 Surgical History History of hysterectomy Social History Smoking Status: Current every day smoker tobacco type: cigarettes ROS ROS ED ROS Narrative Constitutional: Intermittent fever, no chills. HEENT: Positive sore throat. No neck pain. No loss of vision. Positive nasal congestion and rhinorrhea. Cardiovascular: No chest pain. No palpitations. No pedal edema. Respiratory: Positive cough, increasing shortness of breath. Abdominal: No abdominal pain. No nausea. No vomiting. Genitourinary: No dysuria. No hematuria. Musculoskeletal: No myalgias. No arthralgias. Neurologic: No headaches. No dizziness. No lightheadedness. Skin: No rash. No change in color. Psychiatric: No depression. No anxiety. EXAM Physical Exam Narrative Exam Narrative: Afebrile. Vital signs noted. HEENT: Normocephalic. Atraumatic. PERRL, EOMI. Neck soft and supple. No point tenderness or step off. Cardiovascular: Regular rate and rhythm. No murmurs, rubs, or gallops appreciated. Respiratory: No tachypnea. Lungs clear to auscultation bilaterally. Gastrointestinal: Abdomen soft, nontender, with normoactive bowel sounds. No rebound or guarding. Neurological: Awake. Alert. Nonfocal, nonlateralizing. Skin: No rash. Normal color. No pallor. Musculoskeletal: No pedal edema. Full range of motion extremities. Const Vital Signs: 02/17/22 20:30 02/17/22 22:03 02/17/22 22:04 Temperature 98.6 F 98.4 F Temperature Source Temporal Temporal Pulse Rate 98 87 Respiratory Rate 16 18 Respiratory Effort Normal Non-Labored Respiratory Depth Respiratory Pattern Blood Pressure 90/60 97/76 Blood Pressure Mean 70 83 Pulse Ox 98 96 Oxygen Delivery Method Room Air Room Air 02/17/22 22:46 02/17/22 22:46 Temperature Temperature Source Pulse Rate 89 Respiratory Rate 18 22 H Respiratory Effort Normal Non-Labored Short of Breath Respiratory Depth Shallow Respiratory Pattern Normal Tachypnea Blood Pressure Blood Pressure Mean Pulse Ox 98 Oxygen Delivery Method Room Air MDM MDM MDM Narrative Medical decision making narrative: I reviewed her prior ED note. Her blood pressure runs in the 90s and is stable. She was given a dose of Levaquin and a prescription written for that. I will review her chest x-ray. I will repeat her labs and check a lactic acid to make sure she is not becoming septic, but she has a normal heart rate and her pulse ox is 96 to 98% on room air. She will be given a dose of IV Levaquin here in the emergency department. CBC demonstrates lowering of her leukocytosis to 16.7, hemoglobin normal at 13.1, normal platelet count of 353. Sodium slightly low 134 with hypokalemia of 3.2 which was replaced orally with 40 mill equivalents. Glucose 181 with a normal anion gap of 10. Lactic acid is normal at 1.5. She was ambulated and her pulse ox remained at 95 to 96% on room air. At this point in time, she has an albuterol inhaler already. I strongly advised her to supervisor opening and picking her antibiotics and complete the course of therapy. I do not feel that she meets any admission or observation criteria for her pneumonia. Return instructions to the emergency department were reviewed. Disposition is discharged in stable condition. Lab Data Attestation: I reviewed the patient's lab results. Labs: Laboratory Results - last 24 hr 02/17/22 02/17/22 02/17/22 22:40 22:40 22:40 WBC 16.7 H RBC 4.12 L Hgb 13.1 Hct 37.9 MCV 92.0 MCH 31.8 MCHC 34.6 RDW Std Deviation 42.8 RDW Coeff of Elise 12.6 Plt Count 353 MPV 10.0 Immature Gran % (Auto) 0.600 Neut % (Auto) 86.2 H Lymph % (Auto) 7.7 L [place] % (Auto) 5.2 Eos % (Auto) 0.2 Baso % (Auto) 0.1 Absolute Neuts (auto) 14.4 H Absolute Lymphs (auto) 1.28 Nucleated RBC % 0 Sodium 134 L Potassium 3.2 L Chloride 100 Carbon Dioxide 24.0 Anion Gap 10 BUN 9 Creatinine 0.64 Estim Creat Clear Calc 74.07 Est GFR (MDRD) Af Amer 122 Est GFR (MDRD) Non-Af 101 BUN/Creatinine Ratio 14.0 Glucose 181 H Lactic Acid 1.5 Calcium 9.3 Discharge Plan Triage Chief Complaint: Shortness of Breath ED Provider: Kameron Jones Dx/Rx/DC Orders Clinical Impression: Pneumonia, Leukocytosis, Hypokalemia Instructions: ED Hypokalemia, ED Pneumonia (Adult) Prescriptions: No Action cyclobenzaprine 10 mg Tablet 10 mg PO TID PRN (Reason: Spasms) pioglitazone 15 mg Tablet 15 mg PO DAILY buspirone 5 mg Tablet 5 mg PO TID pravastatin 40 mg Tablet 40 mg PO QHS meloxicam 15 mg Tablet 15 mg PO DAILY amitriptyline 50 mg Tablet 50 mg PO QHS metformin 1,000 mg Tablet 1,000 mg PO BID bupropion HCl [Wellbutrin] 75 mg Tablet 37.5 mg PO QHS montelukast [Singulair] 10 mg Tablet 10 mg PO DAILY oxycodone-acetaminophen [Percocet] 7.5-325 mg Tablet 1 tab PO Q6H PRN (Reason: Pain) albuterol sulfate 90 mcg/actuation Hfa Aerosol Inhaler 2 puff INHALATION Q4H PRN (Reason: Wheezing) fluticasone propionate [Flonase Allergy Relief] 50 mcg/actuation [employer],Suspension 2 spray INTRANASAL DAILY Rx Instructions: administer into each nostril topiramate 50 mg Tablet 50 mg PO QHS duloxetine 60 mg Capsule,Delayed Release(Dr/Ec) 60 mg PO DAILY pregabalin 100 mg Capsule 100 mg PO DAILY budesonide-formoterol [Symbicort] 80-4.5 mcg/actuation Hfa Aerosol Inhaler 2 puff INHALATION BID insulin glargine [Lantus Solostar U-100 Insulin] 100 unit/mL (3 mL) Insulin Pen 83 unit SUBCUT QHS Vitamin D3 ondansetron 4 mg tablet,disintegrating 4 mg PO Q8H PRN (Reason: nausea and vomiting) Qty: 14 0RF ibuprofen 600 mg tablet 600 mg PO Q6H PRN PRN (Reason: fever or pain) Qty: 20 0RF acetaminophen [Tylenol 8 Hour] 650 mg tablet extended release 650 mg PO Q8H PRN (Reason: fever or pain) Qty: 14 0RF levofloxacin 750 mg tablet 750 mg PO DAILY Qty: 7 0RF benzonatate 200 mg capsule 200 mg PO TID PRN (Reason: cough) Qty: 20 0RF Primary Care Provider: Care Physician,No Primary Referrals: Care Physician,No Primary [Primary Care Provider] - Activity Restrictions/Additional Instructions: Make sure you supervisor opening and picking your prescription for Levaquin. Continue to use your albuterol inhaler. No smoking! Disposition Disposition: Home, Self Care
[2022-02-17 22:46] VITALS: PULSE 89; RESP 18; RESP 22; O2SAT 98
[2022-02-17] MEDS: Ipratropium/Albuterol Sulfate 3 ML AMPUL.NEB INHALATION (22:46)
[2022-02-17 23:01] LABS: Absolute Lymphocyte Count 1.28 X10^3/uL (0.83-4.51); Absolute Neutrophil Count 14.4 X10^3/uL (2.0-7.7); Basophil# 0.02 X10^3/uL; Basophil% 0.1 % (0-1); Eosinophil# 0.04 X10^3/uL; Eosinophils% 0.2 % (0-5); Hematocrit 37.9 % (37-47); Hemoglobin 13.1 g/dL (12.0-15.0); Lymphocyte # 1.28 X10^3/ul (0.83-4.51); Lymphocyte % 7.7 % (19-41); Mean Corp Hgb Conc 34.6 g/dL (32-36); Mean Corpuscular Hgb 31.8 pg (27.0-32.0); Monocyte# 0.86 X10^3/uL; Monocyte% 5.2 % (0-10); NRBC Flagged by Analyzer 0 % (0-5); Neutrophil # 14.37 X10^3/uL (2.7-7.7); Neutrophil % 86.2 % (47-70); Platelet Count 353 K/mm3 (150-450); RBC Distribution Width CV 12.6 % (11.6-14.6); RBC Distribution Width SD 42.8 fl (35.1-43.9); Red Blood Count 4.12 M/mm3 (4.2-5.4); White Blood Count 16.7 K/mm3 (4.4-11.0)
[2022-02-17 23:14] LABS: Anion Gap 10 (5-15); BUN 9 mg/dL (7-18); Calcium,Total 9.3 mg/dL (8.5-10.1); Chloride 100 mmol/L (98-107); Creatinine, Serum 0.64 mg/dL (0.55-1.02); EST Glomerular Filtration Rate 101 mL/min (>60); Est Glom Filt Rate - Afr Amer 122 mL/min (>60); Estimated Creatinine Clearance 74.07 ml/min; Glucose 181 mg/dL (74-106); Potassium 3.2 mmol/L (3.5-5.1); Sodium Level 134 mmol/L (136-145)
[2022-02-17 23:16] VITALS: O2SAT 96
[2022-02-17 23:19] LABS: Lactic Acid 1.5 mmol/L (0.4-1.9)
[2022-02-18 00:05] VITALS: BP 103/75; PULSE 88; RESP 16; O2SAT 95
[2022-02-18] MEDS: levoFLOXacin 750 MG Tablet PO (00:05)
[2022-02-18] MEDS: Potassium Chloride Oral Tablet 20 MEQ 40 MEQ PO (00:05)
== END 2022-02-18 00:07 | disposition home or self-care (01) ==
PROVIDERS: Emergency Provider Emergency Medicine; Visit Provider Emergency Medicine
DX: J18.9 Pneumonia, unspecified organism (principal); D72.829 Elevated white blood cell count, unspecified; E87.6 Hypokalemia; F17.210 Nicotine dependence, cigarettes, uncomplicated; R06.02 Shortness of breath; Z20.822 Contact with and (suspected) exposure to COVID-19
CPT/HCPCS: 80048; 83605; 85025; 94640; 99251; 99252; 99285; A4216; G0463

== ENCOUNTER 2022-03-27 13:38 | Emergency (ER) | payer MEDICARE, SELFPAY ==
[2022-03-27 13:39] VITALS: BP 126/103; PULSE 113; RESP 14; TEMP 36.4; O2SAT 100; BMI 26.9
--- NOTE | 2022-03-27 15:14 | EDS_ITS ---
HPI History of Present Illness Chief Complaint: Shortness of Breath Detail of Chief Complaint: Shortness of breath, nonproductive cough, nausea, diarrhea, myalgias Informant: patient Onset/Context/Timing Onset: Yesterday Context: sudden Timing: Continuous and Waxes and wanes Quality: Positive for Dyspnea on exertion and Wheezing; Negative for Orthopnea or PND Current Severity: Mild Maximum Severity: Moderate Worsened by: Exertion and Coughing Relieved by: Nothing Associated Symptoms cough, rhinorrhea and sore throat; Negative for post nasal drip, ear pain, fever, subjective, chills, sweats, clear sputum, white sputum, yellow sputum or green sputum Chest Pain: Positive for None Narrative Narrative: Patient is a 56-year-old woman who presents with viral-like symptoms that started yesterday. She endorses rhinorrhea, congestion, sore throat, nonproductive cough and wheezing. She is a smoker. She has not smoked in the last couple of days. She does have history of COPD. She reports she she was diagnosed with pneumonia last month. Review of outside records indicates patient was diagnosed with pneumonia on March 01, 2022. She was seen for shortness of breath on March 09, 2022. Patient is presently living at the longterm. She is from [place]. She denies fever. She denies chills. Denies headache, visual, ocular auditory symptoms. She denies vomiting. She denies dysuria, frequency, urgency or hematuria. She denies rash. Patient does have history of chronic pain and is seen by a chest pain coordinator. Her OAR[place] report was checked on March 16, 2022 and accurate to what patient claims. PE Risk Factors: Negative for Cancer, OCP + Smoking + > 35, Prior DVT or PE, Recent immobilization, Recent surgery or Recent travel Prior similar symptoms: Yes (COPD and recently pneumonia) Recent Illness/Hospitalization: Yes PFSH [facility] Medical History Back pain Carpal tunnel syndrome on both sides Cholecystectomy planned Pain management Pneumonia Home Medications Vitamin D3 1,000 units PO.IVFORM DAILY 02/05/22 [History Last Taken Unknown] acetaminophen 650 mg tablet,extended release (Tylenol 8 Hour) 650 mg PO Q8H PRN fever or pain #14 tabs 02/05/22 [Rx Last Taken Unknown] albuterol sulfate 90 mcg/actuation aerosol inhaler 2 puff inhalation Q4H PRN Wheezing 02/05/22 [History Last Taken Unknown] amitriptyline 50 mg tablet 50 mg PO QHS 02/05/22 [History Last Taken Unknown] budesonide-formoterol HFA 80 mcg-4.5 mcg/actuation aerosol inhaler (Symbicort) 2 puff inhalation BID 02/05/22 [History Last Taken Unknown] bupropion HCl 75 mg tablet 37.5 mg PO QHS 02/05/22 [History Last Taken Unknown] buspirone 5 mg tablet 5 mg PO TID 02/05/22 [History Last Taken Unknown] cyclobenzaprine 10 mg tablet 10 mg PO TID PRN Spasms 02/05/22 [History Last Taken Unknown] duloxetine 60 mg capsule,delayed release 60 mg PO DAILY 02/05/22 [History Last Taken Unknown] fluticasone propionate 50 mcg/actuation nasal spray,suspension (Flonase Allergy Relief) 2 spray intranasal DAILY 02/05/22 [History Last Taken Unknown] ibuprofen 600 mg tablet 600 mg PO Q6H PRN PRN fever or pain #20 tabs 02/05/22 [Rx Last Taken Unknown] insulin glargine 100 unit/mL (3 mL) subcutaneous pen (Lantus Solostar U-100 Insulin) 83 unit subcut QHS 02/05/22 [History Last Taken Unknown] meloxicam 15 mg tablet 15 mg PO DAILY 02/05/22 [History Last Taken Unknown] metformin 1,000 mg tablet 1,000 mg PO BID 02/05/22 [History Last Taken Unknown] montelukast 10 mg tablet (Singulair) 10 mg PO DAILY 02/05/22 [History Last Taken Unknown] ondansetron 4 mg disintegrating tablet 4 mg PO Q8H PRN nausea and vomiting #14 tabs 02/05/22 [Rx Last Taken Unknown] oxycodone-acetaminophen 7.5 mg-325 mg tablet (Percocet) 1 tab PO Q6H PRN Pain 02/05/22 [History Last Taken Unknown] pioglitazone 15 mg tablet 15 mg PO DAILY 02/05/22 [History Last Taken Unknown] pravastatin 40 mg tablet 40 mg PO QHS 02/05/22 [History Last Taken Unknown] pregabalin 100 mg capsule 100 mg PO DAILY 02/05/22 [History Last Taken Unknown] topiramate 50 mg tablet 50 mg PO QHS 02/05/22 [History Last Taken Unknown] benzonatate 200 mg capsule 200 mg PO TID PRN cough #20 caps 02/16/22 [Rx Last Taken Unknown] levofloxacin 750 mg tablet 750 mg PO DAILY #7 tabs 02/16/22 [Rx Last Taken Unknown] inhalational spacing device (Aerochamber MV spacer) #1 ea 03/27/22 [Rx Last Take n Unknown] Allergy/AdvReac Type Severity Reaction Status Date / Time codeine Allergy Other Verified 03/27/22 13:39 hydrocodone [From Vicodin] Allergy Other Verified 03/27/22 13:39 oxycodone AdvReac Itching Verified 03/27/22 13:39 Surgical History History of hysterectomy Social History (Updated 03/27/22 @ 15:[address] Karthik Villarreal MD) housing: homeless Smoking Status: Current every day smoker tobacco type: cigarettes substance use type: does not use ROS ROS ED Constitutional Constitutional ED: Denies chills, fever(s), sweats or weight loss Eyes Eyes: Denies blurry vision, change in vision or diplopia ENT ENT ED: Reports rhinorrhea and sore throat; Denies ear pain Cardiovascular Cardiovascular: Denies chest pain, orthopnea, palpitations, paroxysmal nocturnal dyspnea or racing heartbeat Respiratory/Chest Respiratory/Chest: Reports cough, dyspnea and dyspnea on exertion; Denies orthopnea, paroxysmal nocturnal dyspnea or sputum Gastrointestinal Gastrointestinal: Reports diarrhea and nausea; Denies abdominal pain, melena or vomiting Genitourinary Genitourinary ED: Denies dysuria, hematuria or urinary frequency Musculoskeletal Musculoskeletal: Reports myalgias; Denies arthralgias, back pain or neck pain Integumentary Denies rash Neurologic Neurologic: Denies headache(s), paresthesias or weakness Psychiatric Psychiatric: Denies anxiety or depression Endocrine Endocrinology: Denies cold intolerance or heat intolerance Hematologic/Lymphatic Hematologic/Lymphatic: Denies easy bleeding or easy bruising EXAM Physical Exam Const Vital Signs: 03/27/22 13:39 Temperature 97.5 F L Temperature Source Temporal Pulse Rate 113 H Respiratory Rate 14 Blood Pressure 126/103 H Blood Pressure Mean 110 Pulse Ox 100 Oxygen Delivery Method Room Air Positive well nourished and well developed General Appearance ED: well developed and NAD; Negative for pallor HEENT Reports moist mucous membranes HEENT Narrative: Head is atraumatic normocephalic. Ears normal. TMs normal. Nares patent with slight clear drainage. Posterior pharynx without erythema or exudate. Uvula is midline. Eyes PERRL and EOMs intact bilaterally General Eye ED: Negative for pale conjunctiva or scleral icterus Neck no lymphadenopathy, supple, no meningeal signs and no JVD Neck Narrative: Trachea midline. There is no inspiratory expiratory stridor. Resp normal respiratory effort and clear to auscultation bilaterally Cardio regular rate, regular rhythm, S1 normal heart sound, S2 normal heart sound and no murmurs GI non-tender, non-distended and no masses Auscultation: normoactive bowel sounds Palpation: soft Back/Spine no CVA tenderness and normal to inspection General Back: Negative for tenderness Extremity normal to inspection Extremity Narrative: There is no asymmetry, swelling, discoloration, leg vein distention, palpable cords or tenderness along the distribution of the deep venous system. General Extremety ED: Negative for edema or tenderness General Extremity: Negative for edema Neuro oriented x3, CN's II-XII intact bilaterally and no sensory deficits noted Mane Coma Scale: document GCS findings Spontaneous Obeys Commands Oriented 15 Sensorium / Orientation: alert Psych mental status grossly normal Thought Process: normal thought process Skin no wounds and skin turgor normal General Skin Exam: Negative for jaundice or pallor MDM MDM MDM Narrative Medical decision making narrative: Suspect patient has viral illness causing upper respiratory symptoms with cough and congestion. Because patient was recently diagnosed with pneumonia will obtain chest x-ray to assess for pneumonia. OARRS report was reviewed and consistent with patient's history. Prior records from outside facility were obtained and patient was seen on March 01 and March 09 for pneumonia and COPD exacerbation as summarized in the HPI narrative. Radiography Chest X-Ray - ED: 2 View and Read by ED Physician (2 view chest x-ray independent reviewed interpreted by me at 1548 as negative. Cardiac silhouette and size normal. Perihilar region normal. Lung parenchyma normal. Osseous structures are normal.) Rhythm Strip Rhythm Strip: Sinus Rhythm Rate: 99 Ectopy: None Treatment and Re-Evaluation Narrative: Patient has symptoms consistent with upper respiratory viral tract infection. She was instructed that she will have a cough for 1 to 2 weeks she was instructed/told that antibiotics are inappropriate. Since she has no wheezing prednisone is not indicated. She was prescribed a spacer. Discharge Plan Triage Chief Complaint: Shortness of Breath ED Provider: Karthik Villarreal Dx/Rx/DC Orders Clinical Impression: Acute dyspnea, Upper respiratory infection with cough and congestion, History of COPD Prescriptions: New (DME) Aerochamber MV Spacer See Rx Instructions .Route Qty: 1 0RF Rx Instructions: As directed No Action cyclobenzaprine 10 mg Tablet 10 mg PO TID PRN (Reason: Spasms) pioglitazone 15 mg Tablet 15 mg PO DAILY buspirone 5 mg Tablet 5 mg PO TID pravastatin 40 mg Tablet 40 mg PO QHS meloxicam 15 mg Tablet 15 mg PO DAILY amitriptyline 50 mg Tablet 50 mg PO QHS metformin 1,000 mg Tablet 1,000 mg PO BID bupropion HCl [Wellbutrin] 75 mg Tablet 37.5 mg PO QHS montelukast [Singulair] 10 mg Tablet 10 mg PO DAILY oxycodone-acetaminophen [Percocet] 7.5-325 mg Tablet 1 tab PO Q6H PRN (Reason: Pain) albuterol sulfate 90 mcg/actuation Hfa Aerosol Inhaler 2 puff INHALATION Q4H PRN (Reason: Wheezing) fluticasone propionate [Flonase Allergy Relief] 50 mcg/actuation Art,Suspension 2 spray INTRANASAL DAILY Rx Instructions: administer into each nostril topiramate 50 mg Tablet 50 mg PO QHS duloxetine 60 mg Capsule,Delayed Release(Dr/Ec) 60 mg PO DAILY pregabalin 100 mg Capsule 100 mg PO DAILY budesonide-formoterol [Symbicort] 80-4.5 mcg/actuation Hfa Aerosol Inhaler 2 puff INHALATION BID insulin glargine [Lantus Solostar U-100 Insulin] 100 unit/mL (3 mL) Insulin Pen 83 unit SUBCUT QHS Vitamin D3 1,000 units PO.IVFORM DAILY ondansetron 4 mg tablet,disintegrating 4 mg PO Q8H PRN (Reason: nausea and vomiting) Qty: 14 0RF ibuprofen 600 mg tablet 600 mg PO Q6H PRN PRN (Reason: fever or pain) Qty: 20 0RF acetaminophen [Tylenol 8 Hour] 650 mg tablet extended release 650 mg PO Q8H PRN (Reason: fever or pain) Qty: 14 0RF levofloxacin 750 mg tablet 750 mg PO DAILY Qty: 7 0RF benzonatate 200 mg capsule 200 mg PO TID PRN (Reason: cough) Qty: 20 0RF Referrals: Michelle Villarreal [Non-Staff] - 1 Week if not improving Care Physician,No Primary [Non-Staff] - Activity Restrictions/Additional Instructions: 1. Use spacer with your inhaler. You will receive 2-3 times more medication per inhalation. 4 inhalations is equivalent to an aerosol treatment/nebulizer treatment. 2. It is in your best interest to quit smoking. Disposition Disposition: Home, Self Care
--- NOTE | 2022-03-27 15:25 | RAD_ITS ---
EXAM: XR CHEST, 2 VIEWS CLINICAL INDICATION: Dyspnea and cough of history of COPD TECHNIQUE: Frontal and lateral views of the chest. This report was created using [employer] report generation technology. COMPARISON: 02.16.22 FINDINGS: LUNGS AND PLEURAL SPACES: Stable nodule of the right upper lobe. No pneumothorax. No effusion. HEART: Unremarkable. Cardiac silhouette not enlarged. MEDIASTINUM: Central airways and mediastinal contour are unremarkable. BONES/JOINTS: Unremarkable. SOFT TISSUES: Unremarkable. RAD/Chest PA and Lateral IMPRESSION: No acute findings in the chest. Electronically Signed: King Tinsley MD at 15:55 EST ,
== END 2022-03-27 16:03 | disposition home or self-care (01) ==
PROVIDERS: Emergency Provider Emergency Medicine; Visit Provider Emergency Medicine
DX: J06.9 Acute upper respiratory infection, unspecified (principal); J44.9 Chronic obstructive pulmonary disease, unspecified; R06.00 Dyspnea, unspecified; Z59.00 Homelessness unspecified; R19.7 Diarrhea, unspecified; F17.200 Nicotine dependence, unspecified, uncomplicated; R11.0 Nausea; M79.10 Myalgia, unspecified site; R05.9 Cough, unspecified; Z87.01 Personal history of pneumonia (recurrent)
CPT/HCPCS: 71046; 99282